=== PATIENT | female | born 1995 | race Caucasian/White ===

== ENCOUNTER 2018-04-25 00:25 | Emergency (ER) | payer MEDICAID, OTHER ==
[~2018-04-25] VITALS: Ht 170.2 cm; Wt 79.4 kg
[2018-04-25 00:28] VITALS: BP 112/75
[2018-04-25] MEDS: IBUPROFEN 600 MG TAB PO ONE (01:35)
[2018-04-25 01:54] VITALS: BP 111/72
== END 2018-04-25 01:55 | disposition home or self-care (01) ==
LOC: MED 00:25
DX: S92.532A Displaced fracture of distal phalanx of left lesser toe(s), initial encounter for closed fracture (principal); W19.XXXA Unspecified fall, initial encounter; Y93.89 Activity, other specified; Y92.89 Other specified places as the place of occurrence of the external cause; Y99.8 Other external cause status
CPT/HCPCS: 73660; 99284; Q0092

== ENCOUNTER 2018-05-01 22:56 | Emergency (ER) | payer SELFPAY ==
[~2018-05-01] VITALS: Ht 170.2 cm; Wt 79.8 kg
[2018-05-01 23:06] VITALS: BP 121/66
--- NOTE | 2018-05-01 23:11 | NUR ---
TO LOBBY A/W BED, KULWINDER RAMIREZ NOTED
--- NOTE | 2018-05-02 00:34 | NUR ---
Patient being evaluated by physician at TRIAGE ROOM
[2018-05-02 00:39] VITALS: BP 118/75
--- NOTE | 2018-05-02 00:39 | NUR ---
Patient discharged with v/s stable. Written and verbal after care instructions given and explained. Patient verbalized understanding. Ambulatory with steady gait. All questions addressed prior to discharge. Advised to follow up with PMD.
== END 2018-05-02 00:39 | disposition home or self-care (01) ==
LOC: MED 22:56
DX: Z02.79 Encounter for issue of other medical certificate (principal)
CPT/HCPCS: 99283

== ENCOUNTER 2019-07-19 08:40 | Emergency (ER) | payer MEDICAID ==
[~2019-07-19] VITALS: Ht 170.2 cm; Wt 75.5 kg
[2019-07-19 09:03] VITALS: BP 111/44
--- NOTE | 2019-07-19 09:58 | NUR ---
Conner ambulated to bed 6. RN evaluating patient at bedside.
[2019-07-19 11:33] VITALS: BP 128/75
== END 2019-07-19 11:35 | disposition home or self-care (01) ==
LOC: MED 08:40
DX: K59.00 Constipation, unspecified (principal); N39.0 Urinary tract infection, site not specified
CPT/HCPCS: 74018; 99283

== ENCOUNTER 2019-08-30 18:54 | Emergency (ER) | payer MEDICAID ==
[~2019-08-30] VITALS: Ht 170.2 cm; Wt 71.7 kg
[2019-08-30 19:25] VITALS: BP 130/68
--- NOTE | 2019-08-30 19:29 | NUR ---
AMBULATES TO THE LOBBY WITH UPRIGHT STEADY GAIT. AWAITING AVAILABLE BED.
--- NOTE | 2019-08-30 19:40 | NUR ---
ICE PACK PROVIDED FOR MONTES.
[2019-08-30 20:52] VITALS: BP 130/68
--- NOTE | 2019-08-30 20:52 | NUR ---
24 Y/O FEMALE C/O 05/22 MIGRIANE MONTES X 5 DAYS WITH BLURRED VISION AND DROWSINESS. DENIES N/V/D. PAIN IS A 7/10 STARTING IN THE MIDDLE OF THE FORHEAD AND RADIATES TO THE TEMPLES BILATERALLY. SENSITIVE TO LIGHT. PER PATIENT, "I TRIED TYLENOL AND NO RELIEF". ERMD MADE AWARE OF STATUS. SIDE RAILS X1. WILL CONTINUE TO MONITOR. LIGHTS DIMMED FOR COMFORT. PMH-- MIGRAINES RX-- TYLENOL AND NORCO; TEMPORARY RELIEF
--- NOTE | 2019-08-30 20:52 | NUR ---
PT AMBULATED TO ER BED 02 @2044
[2019-08-30] MEDS ORDERED: SUMAtriptan 6 MG/0.5 ML VIAL SUBQ ONE (21:50)
== END 2019-08-30 22:58 | disposition home or self-care (01) ==
LOC: MED 18:54
DX: G43.909 Migraine, unspecified, not intractable, without status migrainosus (principal)
CPT/HCPCS: 96372; 99283; J3030

== ENCOUNTER 2019-09-01 14:21 | Emergency (ER) | payer MEDICAID ==
[~2019-09-01] VITALS: Ht 170.2 cm; Wt 72.6 kg
[2019-09-01 14:34] VITALS: BP 123/74
--- NOTE | 2019-09-01 14:37 | NUR ---
PT AMBULATED TO ER BED 02
--- NOTE | 2019-09-01 14:38 | NUR ---
24/F BIB FAMILY C/O FRONTAL LOBE HEADACHE X 7 DAYS. WORSE TODAY. DENIES N/V. STATES IMITREX NOT WORKING TODAY. VAPES. HX--HEADACHE. RX--IMITREX.PA PATIENT STATES PAIN OF 10/10 AT THIS TIME. PATIENT POSITIONED FOR COMFORT; HOB ELEVATED; BEDRAILS UP X1; BED DOWN. ER MD MADE AWARE OF PT STATUS.
[2019-09-01] MEDS ORDERED: NACL 0.9% 1,000 ML IV ONE (14:45)
[2019-09-01] MEDS ORDERED: diphenhydrAMINE 50 MG/ML VIAL IVP ONE (14:45)
[2019-09-01] MEDS ORDERED: PROCHLORPERAZINE 10 MG/2 ML VIAL IVP ONE (14:45)
[2019-09-01] MEDS ORDERED: KETOROLAC 30 MG/ML VIAL IVP ONE (14:45)
[2019-09-01 15:53] VITALS: BP 119/67
== END 2019-09-01 15:53 | disposition home or self-care (01) ==
LOC: MED 14:21
DX: G43.909 Migraine, unspecified, not intractable, without status migrainosus (principal); F12.10 Cannabis abuse, uncomplicated; F17.210 Nicotine dependence, cigarettes, uncomplicated; H53.149 Visual discomfort, unspecified
CPT/HCPCS: 96374; 96375; 99283; J0780; J1200; J1885; J7030

== ENCOUNTER 2020-02-16 21:55 | Emergency (ER) | payer MEDICAID ==
[~2020-02-16] VITALS: Ht 170.2 cm; Wt 70.3 kg
[2020-02-16 22:08] VITALS: BP 112/67
--- NOTE | 2020-02-16 22:10 | NUR ---
PT TO A/W MEDICAL EVAULATION IN TENT.
--- NOTE | 2020-02-17 00:15 | NUR ---
PATIENT LEFT WITHOUT BEING SEEN BY DR. DAMON. NO FURTHER CARE PROVIDED FOR PATIENT.
== END 2020-02-17 00:15 | disposition left against medical advice (07) ==
LOC: MED 21:55
DX: R43.9 Unspecified disturbances of smell and taste (principal); Z53.21 Procedure and treatment not carried out due to patient leaving prior to being seen by health care provider

== ENCOUNTER 2020-02-25 01:30 | Emergency (ER) | payer MEDICAID ==
[~2020-02-25] VITALS: Ht 170.2 cm; Wt 72.6 kg
[2020-02-25 01:42] VITALS: BP 159/136
--- NOTE | 2020-02-25 01:50 | NUR ---
PT 24 FEMALE BIB SELF FOR C/O MONTES 10/10 PAIN X 1 DAY. PT AAO X4. PERRLA 3MM BRISK BILAT. DENIES ANY HEAD INJURY. ADMITS TO LIGHT SENSITIVITY. PT ALSO HAS C/O ABD PAIN X 4 QUADRANTS X 1 DAY. PT ADMITS TO N/V AND CONSTIPATION. BS PRESENT X 4. ABD IS ROUND, SOFT, AND NON TENDER. BED LOCKED AND IN LOWET POSITION. MEDHX: DENIES. ALLERGIES: NKA
--- NOTE | 2020-02-25 01:50 | NUR ---
PT AMBULATED TO BED 10 WITH STEADY GAIT.
--- NOTE | 2020-02-25 02:03 | NUR ---
PT AMBULATED TO RESTROOM WITH STEADY GAIT.
[2020-02-25] MEDS ORDERED: PROCHLORPERAZINE 10 MG/2 ML VIAL IVP ONE (02:20)
[2020-02-25] MEDS ORDERED: DEXAMETHASONE 10 MG/ML VIAL IVP ONE (02:20)
[2020-02-25] MEDS ORDERED: NACL 0.9% 1,000 ML IV ONE (02:20)
[2020-02-25] MEDS ORDERED: KETOROLAC 15 MG/ML VIAL IVP ONE (02:20)
[2020-02-25] MEDS ORDERED: MAG SULF 2000 MG/WATER PREMIX 50 ML IV ONE (02:20)
--- NOTE | 2020-02-25 02:20 | NUR ---
VERBAL ORDER FOR MIGRAINE COCKTAIL RECEIVED. BENEDRYL VIAL PULLED BY MISTAKE. WASTED WITH VEDA COTO AT [employer].
[2020-02-25] MEDS ORDERED: diphenhydrAMINE 50 MG/ML VIAL ONE (02:28)
--- NOTE | 2020-02-25 03:27 | NUR ---
PT RESTING IN BED IN POSITION OF COMFORT, BED LOW AND LOCKED, SIDERAILS UP, VSS, WILL CONTINUE TO MONITOR
--- NOTE | 2020-02-25 05:18 | NUR ---
Patient discharged with v/s stable. Written and verbal after care instructions given and explained. Patient alert, oriented and verbalized understanding of instructions. Ambulatory with steady gait. All questions addressed prior to discharge. ID band removed. Patient advised to follow up with PMD. Rx of MAGNESIUM, AND VITAMIN B12 given. Patient educated on indication of medication including possible reaction and side effects. Opportunity to ask questions provided and answered.
--- NOTE | 2020-02-26 09:10 | NUR ---
LATE ENTRY- NORMAL SALINE 0.9% IV FLUIDS DISCONTINUED AT 0518.
== END 2020-02-25 01:50 | disposition home or self-care (01) ==
LOC: MED 01:30
DX: R51 Headache (principal)
CPT/HCPCS: 62270; 81025; 96365; 96375; 99284; J0780; J1100; J1200; J1885; J3475; J7030; 81002

== ENCOUNTER 2020-10-08 08:45 | Emergency (ER) | payer MEDICAID ==
[~2020-10-08] VITALS: Ht 170.2 cm; Wt 73.5 kg
[2020-10-08 08:50] VITALS: BP 122/79
--- NOTE | 2020-10-08 09:03 | NUR ---
25 YEAR OLD FEMALE COMPLAINS OF LEFT ARM TINGLING X 4 DAYS. PER PATIENT LEFT ARM TINGLING/NUMB WITH PAIN 10/10, RADIATES FROM FINGERS TO SHOULDER, DULL, INTERMITTENT. PULSES PRESENT, <3 SECONDS CAP REFILL APPROPRIATE ROM NOTED, SKIN WARM AND DRY, NO EDEMA NOTED. PATIENT DENIES CHEST PAIN AND SOB. SYMMETRICAL FACIAL FEAUTURES, SYMMETRICAL STRENGTH BILATERAL, DENIES WEAKNESS. AO4, BREATHING EVEN AND UNLABORED. BED IN LOWEST POSITION, LOCKED, X1 SIDERAIL UP. PMH - DENIED NKA
[2020-10-08 10:17] LABS: BASOPHILS % (AUTO) 0.4 % (0.0-2.0); EOSINOPHILS # (AUTO) 0.1 K/uL (0-0.4); EOSINOPHILS % (AUTO) 1.9 % (0.0-4.0); HEMATOCRIT 37.5 % (36-48); HEMOGLOBIN 12.5 g/dL (12.0-16.0); LYMPHOCYTES # (AUTO) 1.4 K/uL (2.5-16.5); LYMPHOCYTES % (AUTO) 22.7 % (20.5-51.1); MEAN CORPUSCULAR HEMOGLOBIN 31 pg (27-31); MEAN CORPUSCULAR HGB CONC 33 g/dL (33-37); MEAN CORPUSCULAR VOLUME 92.7 fL (80-94); MONOCYTES # (AUTO) 0.3 K/uL (0.8-1.0); MONOCYTES % (AUTO) 5.4 % (1.7-9.3); NEUTROPHILS # (AUTO) 4.4 K/uL (1.8-7.7); NEUTROPHILS % (AUTO) 69.6 % (42.2-75.2); PLATELET COUNT (AUTO) 214 K/uL (140-450); RED BLOOD CELL COUNT(AUTO) 4.04 MIL/uL (4.20-5.40); RED CELL DISTRIBUTION WIDTH 12.5 % (11.6-13.7); WHITE BLOOD COUNT (AUTO) 6.3 K/uL (4.8-10.8)
[2020-10-08 10:34] LABS: ALBUMIN 3.4 g/dL (3.4-5.0); ANION GAP 8.5 (8-16); CARBON DIOXIDE 30.3 mmol/L (21-32); CREATININE 0.7 mg/dL (0.6-1.3); POTASSIUM 3.8 mmol/L (3.5-5.1); TOTAL BILIRUBIN 0.1 mg/dL (0.0-1.0)
[2020-10-08 11:33] VITALS: BP 122/79
--- NOTE | 2020-10-08 11:34 | NUR ---
Patient discharged with v/s stable. Written and verbal after care instructions ABOUT NAUROPATHIC PAIN given and explained. Patient verbalized understanding. Ambulatory with steady gait. All questions addressed prior to discharge. Advised to follow up with PMD.
== END 2020-10-08 11:34 | disposition home or self-care (01) ==
LOC: MED 08:45
DX: M79.602 Pain in left arm (principal); M79.601 Pain in right arm; E11.9 Type 2 diabetes mellitus without complications
CPT/HCPCS: 36415; 71045; 73030; 80053; 84484; 85025; 93005; 99285

== ENCOUNTER 2020-12-18 01:44 | Emergency (ER) | payer MEDICAID ==
[~2020-12-18] VITALS: Ht 170.2 cm; Wt 68.0 kg
[2020-12-18 01:54] VITALS: BP 107/65
--- NOTE | 2020-12-18 01:54 | NUR ---
TO BED AMBULATORY
--- NOTE | 2020-12-18 02:14 | NUR ---
PT C/O HEADACHE AND BACK PAIN FOR 2 DAYS. PT STATES PAIN DOES NOT RADIATE.
[2020-12-18 03:04] VITALS: BP 107/65
--- NOTE | 2020-12-18 03:27 | NUR ---
Pt states " I want to go home now". Dr. Pablo made aware of pt LWBS
== END 2020-12-18 03:27 | disposition left against medical advice (07) ==
LOC: MED 01:44
DX: R51.9 Headache, unspecified (principal); Z53.21 Procedure and treatment not carried out due to patient leaving prior to being seen by health care provider

== ENCOUNTER 2021-09-12 03:38 | Emergency (ER) | payer MEDICAID ==
[~2021-09-12] VITALS: Ht 170.2 cm; Wt 83.9 kg
[2021-09-12 03:51] VITALS: BP 109/75
--- NOTE | 2021-09-12 03:58 | NUR ---
PT AMBULATED TO BED 07
[2021-09-12] MEDS ORDERED: KETOROLAC 60 MG/2 ML VIAL IM ONE ×2 (04:05→04:06)
--- NOTE | 2021-09-12 04:05 | NUR ---
Female Senior Technical Writer accompanied female patient for Rectal Exam.
[2021-09-12] MEDS ORDERED: HYDR25SU91 RC (04:10)
[2021-09-12] MEDS ORDERED: NAPR-54 PO (04:10)
[2021-09-12 04:15] VITALS: BP 109/75
--- NOTE | 2021-09-12 04:15 | NUR ---
Patient discharged with v/s stable. Written and verbal after care instructions given and explained. Patient alert, oriented and verbalized understanding of instructions. Ambulatory with steady gait. All questions addressed prior to discharge. ID band removed. Patient advised to follow up with PMD. Rx of NAPROSYN AND HYDROCORTISON ACETATE given. Patient educated on indication of medication including possible reaction and side effects. Opportunity to ask questions provided and answered.
== END 2021-09-12 04:15 | disposition home or self-care (01) ==
LOC: MED 03:38
DX: K64.4 Residual hemorrhoidal skin tags (principal); E11.9 Type 2 diabetes mellitus without complications; Z79.1 Long term (current) use of non-steroidal anti-inflammatories (NSAID); Z79.899 Other long term (current) drug therapy
CPT/HCPCS: 96372; 99283; J1885

== ENCOUNTER 2022-08-09 21:02 | Emergency (ER) | payer MEDICAID ==
[~2022-08-09] VITALS: Ht 170.2 cm; Wt 68.0 kg
[~2022-08-09 21:02] MED LIST: HYDR25SU91 RC; NAPR-54 PO
[2022-08-09 21:14] VITALS: BP 106/60
--- NOTE | 2022-08-09 21:18 | NUR ---
TO LOBBY A/W BED AMBULATORY
--- NOTE | 2022-08-10 00:51 | NUR ---
Dr. Araya examining patient.
[2022-08-10] MEDS ORDERED: HYDROcodone/APAP 5/325 MG 1 TAB TAB PO ONE (01:00)
--- NOTE | 2022-08-10 01:01 | NUR ---
PT TO BED 07 VIA W/C
[2022-08-10] MEDS ORDERED: OFLO5SOL27 LEFT EAR (02:57)
[2022-08-10] MEDS ORDERED: AMOX500C25 PO (02:57)
[2022-08-10] MEDS ORDERED: LOTC TP (02:57)
[2022-08-10] MEDS ORDERED: CEPH500T PO (02:57)
[2022-08-10] MEDS ORDERED: IBUP-2213 PO (02:57)
[2022-08-10] MEDS ORDERED: ACET-9527 PO (02:57)
--- NOTE | 2022-08-10 03:32 | NUR ---
Patient discharged with v/s stable. Written and verbal after care instructions given and explained. Patient alert, oriented and verbalized understanding of instructions. Ambulatory with steady gait. All questions addressed prior to discharge. ID band removed. Patient advised to follow up with PMD. Rx of HYDROCODONE/ACETAMINOPHEN, AMOXICILLIN, CEPHALEXIN, IBUPROFEN, LOTRIMIN, FLOXIN given. Patient educated on indication of medication including possible reaction and side effects. Opportunity to ask questions provided and answered.
[2022-08-10 03:34] VITALS: BP 106/60
== END 2022-08-10 03:32 | disposition home or self-care (01) ==
LOC: MED 21:02
DX: L03.115 Cellulitis of right lower limb (principal); H66.93 Otitis media, unspecified, bilateral; H60.92 Unspecified otitis externa, left ear; Z79.899 Other long term (current) drug therapy
CPT/HCPCS: 73630; 90471; 90715; 93971; 99284; Q0092

== ENCOUNTER 2022-09-10 12:04 | Emergency (ER) | payer MEDICAID ==
[~2022-09-10] VITALS: Ht 170.2 cm; Wt 73.0 kg
[~2022-09-10 12:04] MED LIST changes: +ACET-9527 PO; +AMOX500C25 PO; +CEPH500T PO; +IBUP-2213 PO; +LOTC TP; +OFLO5SOL27 LEFT EAR
[2022-09-10 12:11] VITALS: BP 138/83
--- NOTE | 2022-09-10 12:14 | NUR ---
Patient ambulated with steady gait to bed 8.
--- NOTE | 2022-09-10 12:50 | NUR ---
VERA Eid evaluating patient at bedside.
--- NOTE | 2022-09-10 13:06 | NUR ---
27 y/o female bib self with c/o bilateral ear pain x 6 months. Per patient, she has not been able to get symptoms under control. Patient was seen here and was given drops that she lost. Patient also reports yellow discharge from bilateral ears. Medical History: Denies NKDA
[2022-09-10 14:04] LABS: APPEARANCE,URINE CLOUDY (CLEAR); BLOOD, URINE LARGE (NEGATIVE); COLOR,URINE YELLOW (YELLOW); LEUKOCYTE ESTERASE ,URINE SMALL (NEGATIVE); PH,URINE 6.5 (5.0-9.0)
[2022-09-10 14:05] LABS: BILIRUBIN,URINE NEGATIVE (NEGATIVE); NITRITE, URINE NEGATIVE (NEGATIVE); UGLUCOSE NEGATIVE (NEGATIVE)
[2022-09-10 14:06] LABS: RBC,URINE 20-50 /HPF (0-5)
[2022-09-10 14:07] LABS: URINE AMORPHOUS URATE 1+ /HPF (None Seen)
[2022-09-10] MEDS ORDERED: NITR100C7 PO (14:18)
[2022-09-10] MEDS ORDERED: CIPR7.5S OT (14:18)
[2022-09-10 14:23] VITALS: BP 118/71
--- NOTE | 2022-09-10 14:23 | NUR ---
Patient discharged with v/s stable. Written and verbal after care instructions given. Patient alert, oriented and verbalized understanding of instructions. Ambulatory with steady gait. All questions addressed prior to discharge. ID band removed. Patient advised to follow up with PMD. Rx of CIPRODEX OTIC SUSPENSION AND MACROBID given. Opportunity to ask questions provided and answered.
== END 2022-09-10 14:23 | disposition home or self-care (01) ==
LOC: MED 12:04
DX: H60.93 Unspecified otitis externa, bilateral (principal); N39.0 Urinary tract infection, site not specified; Z79.899 Other long term (current) drug therapy
CPT/HCPCS: 81001; 81025; 87086; 99283